=== PATIENT | female | born 1995 | race Caucasian/White ===

== ENCOUNTER 2023-10-28 18:44 | Inpatient (IN) | payer OTHER ==
--- NOTE | 2023-10-28 19:46 | ED Physician Documentation ---
History of Present Illness - Stated complaint Stated Complaint: CHEST PX/NO APPETITE - Chief complaint Chief Complaint: Cardiac - History obtained from History obtained from: Patient, Family - Additonal information Additional information: 28-year-old female arrives to the emergency department complaining of epigastric pain and burning that radiates to her chest for the past several weeks. She drinks alcohol daily. 5-6 drinks per night per her significant other. He states she has not had any alcohol today. Has had an alcohol withdrawal seizure in the past. Shortly after arrival in the emergency department she had a seizure in the bed, lasted about 1 to 2 minutes followed by 5 to 10 minutes of a postictal period. Does not have any other seizure history. Does not take any medications at home other than recently prescribed Zofran from a walk-in clinic. Review of Systems Constitutional: denies: Fever, Chills Respiratory: denies: Cough GI: denies: Nausea, Vomiting, Diarrhea Skin: denies: Rash Musculoskeletal: denies: Neck pain, Back pain Neurologic: denies: Headache PD PAST MEDICAL HISTORY - Past Medical History Cardiovascular: Hypertension - Past Surgical History Past Surgical History: No - Allergies Allergies/Adverse Reactions: Allergies Allergy/AdvReac Type Severity Reaction Status Date / Time No Known Drug Allergies Allergy Verified 10/28/23 18:53 - Social History Does the pt smoke?: Yes Smoking Status: Current every day smoker PD ED PE NORMAL - Vitals Vital signs reviewed: Yes - General General: Alert and oriented X 3, No acute distress - HEENT HEENT: Atraumatic, PERRL, EOMI, Moist mucous membranes - Neck Neck: Supple, no meningeal sign - Cardiac Cardiac: Other (tachycardia) - Respiratory Respiratory: No respiratory distress, Clear bilaterally - Abdomen Abdomen: Soft, Non tender, Non distended - Back Back: No spinal TTP - Derm Derm: Warm and dry - Neuro Neuro: Alert and oriented X 3, lockstitch topstitcher 2-12 intact, No motor deficit, No sensory deficit, Normal speech Eye Opening: Spontaneous Motor: Obeys Commands Verbal: Oriented GCS Score: 15 - Psych Psych: Normal mood, Normal affect Results - Vitals Vitals: Vital Signs - 24 hr 10/28/23 18:47 Temperature 36.9 C Heart Rate 134 H Respiratory 22 Rate Blood Pressure 156/131 H O2 Saturation 100 Oxygen O2 Source Room air - EKG (time done) 1855 EKG releavant findings:: EKG personally interpreted by author of this note. Relevant findings are: Rate: Rate (enter#) (117) Rhythm: Sinus tachycardia [place]: Normal Intervals: Normal HI QRS: Normal Ischemia: Non specific changes - Labs Labs: Laboratory Tests 10/28/23 10/28/23 10/28/23 19:55 19:55 19:55 WBC 8.3 RBC 3.80 L Hgb 14.7 Hct 41.8 MCV 110.0 H MCH 38.7 H MCHC 35.2 RDW 13.9 Plt Count 211 MPV 9.8 Neut # (Auto) 5.8 Lymph # (Auto) 1.5 [place] # (Auto) 0.9 Eos # (Auto) 0.0 Baso # (Auto) 0.1 Absolute Nucleated RBC 0.00 Nucleated RBC % 0.0 PT INR APTT Sodium 136 Potassium 3.0 L Chloride 94 L Carbon Dioxide 13 L Anion Gap 29.0 H BUN 6 Creatinine 0.9 Estimated GFR (MDRD) 76 L Glucose 156 H Calcium 10.2 Phosphorus 3.6 Magnesium 1.4 L Total Bilirubin 2.4 H AST 61 H ALT 42 Alkaline Phosphatase 84 Troponin I High Sens 22.1 H* Total Protein 6.9 Albumin 4.7 Globulin 2.2 Albumin/Globulin Ratio 2.1 Lipase 47 TSH 5.79 H Free T4 Direct 1.08 Urine Color YELLOW Urine Clarity CLEAR Urine pH 6.5 Ur Specific [place] <=1.005 Urine Protein NEGATIVE Urine Glucose (UA) NEGATIVE Urine Ketones NEGATIVE Urine Occult Blood TRACE-LYSE Urine Nitrite NEGATIVE Urine Bilirubin NEGATIVE Urine Urobilinogen 0.2 (NORMAL) Ur Leukocyte Esterase NEGATIVE Ur Microscopic Review NOT INDICATED Urine Culture Comments NOT INDICATED Urine HCG, Qual NEGATIVE Urine Opiates Screen NEGATIVE Ur Buprenorphine Scrn NEGATIVE Ur Oxycodone Screen NEGATIVE Urine Methadone Screen NEGATIVE Ur Barbiturates Screen NEGATIVE Ur Tricyclics Screen NEGATIVE Ur Phencyclidine Scrn NEGATIVE Ur Amphetamine Screen NEGATIVE U Methamphetamines Scrn NEGATIVE U Benzodiazepines Scrn NEGATIVE Urine Cocaine Screen NEGATIVE U Cannabinoids Screen NEGATIVE Ur Drug Screen Comment CUTOFF CONC BELOW: Ethyl Alcohol < 10.0 10/28/23 21:10 WBC RBC Hgb Hct MCV MCH MCHC RDW Plt Count MPV Neut # (Auto) Lymph # (Auto) [place] # (Auto) Eos # (Auto) Baso # (Auto) Absolute Nucleated RBC Nucleated RBC % PT 13.0 H INR 1.2 APTT 25.1 Sodium Potassium Chloride Carbon Dioxide Anion Gap BUN Creatinine Estimated GFR (MDRD) Glucose Calcium Phosphorus Magnesium Total Bilirubin AST ALT Alkaline Phosphatase Troponin I High Sens Total Protein Albumin Globulin Albumin/Globulin Ratio Lipase TSH Free T4 Direct Urine Color Urine Clarity Urine pH Ur Specific [place] Urine Protein Urine Glucose (UA) Urine Ketones Urine Occult Blood Urine Nitrite Urine Bilirubin Urine Urobilinogen Ur Leukocyte Esterase Ur Microscopic Review Urine Culture Comments Urine HCG, Qual Urine Opiates Screen Ur Buprenorphine Scrn Ur Oxycodone Screen Urine Methadone Screen Ur Barbiturates Screen Ur Tricyclics Screen Ur Phencyclidine Scrn Ur Amphetamine Screen U Methamphetamines Scrn U Benzodiazepines Scrn Urine Cocaine Screen U Cannabinoids Screen Ur Drug Screen Comment Ethyl Alcohol - Rads (name of study) cxr Relevant Findings:: Final report received, See rad report PD Medical Decision Making - ED course Complexity details: reviewed results, re-evaluated patient, considered differential, d/w patient, d/w family, d/w category consultant ED course: 28-year-old female presents to the emergency department with epigastric and chest pain for the past 3 weeks. She drinks alcohol daily, she states 2-3 drinks per day, significant other states at least 6. She has had alcohol withdrawal seizures before and has been admitted for alcohol withdrawal in the past. Patient was given IV Ativan, phenobarbital, thiamine, folate, IV fluids. Magnesium was also replaced. Discussed the case with the nighttime hospitalist for admission to the ICU for alcohol withdrawal seizures and alcohol withdrawal. The nighttime hospitalist requests a head CT prior to admission. Head CT was ordered. Patient is signed out to Dr. Malloy awaiting final disposition. This document was made in part using voice recognition software. While efforts are made to proofread this document, sound alike and grammatical errors may occur. Departure - Departure Disposition: 66 [facility] DC/Xfer Clinical Impression: Hypomagnesemia Alcohol withdrawal Qualifiers: Complication of substance-induced condition: uncomplicated Qualified Code(s): F10.930 - Alcohol use, unspecified with withdrawal, uncomplicated Alcohol withdrawal seizure Qualifiers: Complication of substance-induced condition: uncomplicated Qualified Code(s): F10.930 - Alcohol use, unspecified with withdrawal, uncomplicated Condition: Stable Forms: PCP List
[2023-10-28] MEDS ORDERED: LORazepam 2 MG/ML VIAL IVP STA ×2 (19:53→20:42)
[2023-10-28 20:10] LABS: BASOPHILS # (AUTO) 0.1 10^3/uL (0.0-0.1); BASOPHILS % (AUTO) 0.6 %; EOSINOPHILS % (AUTO) 0.1 %; HCT - HEMATOCRIT 41.8 % (37.0-47.0); HGB - HEMOGLOBIN 14.7 g/dL (12.0-16.0); LYMPHOCYTES # (AUTO) 1.5 10^3/uL (1.5-3.5); LYMPHOCYTES % (AUTO) 18.6 %; MEAN CORPUSCULAR HEMOGLOBIN 38.7 pg (27.0-31.0); MEAN CORPUSCULAR HGB CONC 35.2 g/dL (32.0-36.0); MEAN PLATELET VOLUME 9.8 fL (7.9-10.8); MONOCYTES # (AUTO) 0.9 10^3/uL (0.0-1.0); MONOCYTES % (AUTO) 10.8 %; NEUTROPHILS # (AUTO) 5.8 10^3/uL (1.5-6.6); NEUTROPHILS % (AUTO) 69.4 %; PLT - PLATELET COUNT 211 10^3/uL (130-450); RED CELL DISTRIBUTION WIDTH 13.9 % (12.0-15.0); WHITE BLOOD COUNT 8.3 x10^3/uL (4.8-10.8)
[2023-10-28] MEDS ORDERED: PHENobarbital 65 MG/ML VIAL IM STA (20:12)
[2023-10-28 20:14] LABS: BILIRUBIN,URINE NEGATIVE (NEGATIVE); GLUCOSE, URINE (UA) NEGATIVE (NEGATIVE); KETONES,URINE (UA) NEGATIVE (NEGATIVE); LEUKOCYTE ESTERASE, URINE NEGATIVE (NEGATIVE); NITRITE,URINE NEGATIVE (NEGATIVE); OCCULT BLOOD,URINE TRACE-LYSE (NEGATIVE); PH,URINE 6.5 PH (5.0-7.5); PROTEIN,URINE NEGATIVE (NEGATIVE); UROBILINOGEN,URINE 0.2 (NORMAL) E.U./dL (NORMAL)
[2023-10-28 20:18] LABS: CLARITY,URINE CLEAR (CLEAR)
[2023-10-28 20:19] LABS: HCG UR QUAL NEGATIVE
[2023-10-28 20:29] LABS: ALBUMIN 4.7 g/dL (3.2-5.5); ETOH - ETHANOL < 10.0 mg/dL; LIPASE 47 U/L (11-82); MAGNESIUM 1.4 mg/dL (1.7-2.3); PHOSPHORUS 3.6 mg/dL (2.5-5.0)
[2023-10-28 20:35] LABS: ALBUMIN/GLOBULIN RATIO 2.1 (1.0-2.2); ALKALINE PHOSPHATASE 84 IU/L (42-121); ALT ALANINE AMINOTRANSFERASE 42 IU/L (10-60); AST ASPARTATE AMINOTRANSFERASE 61 IU/L (10-42); BILIRUBIN,TOTAL 2.4 mg/dL (0.2-1.0); BUN - BLOOD UREA NITROGEN 6 mg/dL (6-20); CALCIUM 10.2 mg/dL (8.5-10.3); CARBON DIOXIDE - CO2 13 mmol/L (21-32); CHLORIDE 94 mmol/L (101-111); CREATININE 0.9 mg/dL (0.6-1.3); GFR - MDRD 76 (>89); GLUCOSE 156 mg/dL (74-104); SODIUM 136 mmol/L (135-145); TOTAL PROTEIN 6.9 g/dL (6.4-8.9); TROPONIN I HIGH SENSITIVITY 22.1 ng/L (2.3-14.8)
[2023-10-28] MEDS ORDERED: THIAMINE INJ 100 MG, FOLIC ACID INJ 1 MG in SODIUM CHLORIDE 0.9% 1,000 ML IV STA (20:41)
[2023-10-28] MEDS ORDERED: MAGNESIUM SULFATE 2 GRAM 2 GM/50 ML BAG IV ONE (20:42)
[2023-10-28 20:43] LABS: THYROID STIMULATING HORMONE 5.79 uIU/mL (0.34-5.60)
[2023-10-28 20:44] LABS: AMPHETAMINE SCREEN,URINE NEGATIVE (NEGATIVE); BARBITURATE SCREEN,UR NEGATIVE (NEGATIVE); BENZODIAZEPINES SCREEN, URINE NEGATIVE (NEGATIVE); BUPRENORPHINE SCREEN, URINE NEGATIVE (NEGATIVE); COCAINE SCREEN URINE NEGATIVE (NEGATIVE); METHADONE SCREEN, URINE NEGATIVE (NEGATIVE); METHAMPHETAMINES SCREEN, URINE NEGATIVE (NEGATIVE); OPIATE SCREEN, URINE NEGATIVE (NEGATIVE); OXYCODONE SCREEN, URINE NEGATIVE (NEGATIVE); THC CANNABINOID SCREEN, URINE NEGATIVE (NEGATIVE); TRICYCLIC ANTIDEPRESSANT,URINE NEGATIVE (NEGATIVE)
[2023-10-28] MEDS ORDERED: SODIUM CHLORIDE 0.9% 1,000 ML IV STA (20:44)
[2023-10-28] MEDS ORDERED: FOLIC ACID 5 MG/1 ML 10ML MDV ONE (20:55)
[2023-10-28] MEDS ORDERED: THIAMINE 100 MG/1 ML 2 ML MDV ONE (20:55)
--- NOTE | 2023-10-28 20:55 | XRAY Report ---
PROCEDURE: Chest 1 View X-Ray INDICATIONS: Chest Pain TECHNIQUE: One view of the chest was acquired. COMPARISON: None. FINDINGS: Surgical changes and devices: None. Lungs and pleura: No pleural effusions or pneumothorax. Lungs are clear. Mediastinum: Mediastinal contours appear normal. Heart size is normal. Bones and chest wall: No suspicious bony lesions. Overlying soft tissues appear unremarkable. IMPRESSION: No acute cardiopulmonary process. Reviewed by: Hollie Bullock MD on 10/28/2023 8:54 PM [facility] Approved by: Hollie Bullock MD on 10/28/2023 8:54 PM [facility] Station ID: [id number]
[2023-10-28] MEDS ORDERED: PANTOPRAZOLE 40 MG VIAL IVP STA ×2 (21:12→23:00)
[2023-10-28 21:34] LABS: PARTIAL THROMBOPLASTIN TIME 25.1 secs (24.9-33.3)
[2023-10-28 21:38] LABS: INR 1.2 (0.8-1.2)
--- NOTE | 2023-10-28 23:06 | CT Report ---
PROCEDURE: HEAD WO INDICATIONS: seizure, etoh withdrawal TECHNIQUE: Noncontrast 4.5 mm thick angled axial sections acquired from the foramen magnum to the vertex. For r adiation dose reduction, the following was used: automated exposure control, adjustment of mA and/or kV according to patient size. COMPARISON: None. FINDINGS: Image quality: Excellent. CSF spaces: Basal cisterns are patent. No extra-axial fluid collections. Ventricles are normal in size and shape. Brain: No midline shift. No intracranial masses or hemorrhage. Wei-white matter interface is norm al. Skull and face: Calvarium and visualized facial bones are intact, without suspicious lesions. Sinuses: Visualized sinuses and mastoids are clear. IMPRESSION: No acute intracranial pathology. Reviewed by: Hollie Bullock MD on 10/28/2023 11:04 PM [facility] Approved by: Hollie Bullock MD on 10/28/2023 11:04 PM [facility] Station ID: [id number]
--- NOTE | 2023-10-28 23:25 | HISTORY & PHYSICAL EXAMINATION ---
Chief Complaint - Chief Complaint Chief Complaint: seizure History of Present Illness - Admitted From Admitted From:: home - History of Present Illness HPI Comment/Other: 28 y/o F presented to the ED with abd. Mosty epigastric for few weeks. No radiation or sob but occasional nausea. She received some Zofran in a clinic few days ago. She drinks daily and has had alcohol withdrawal seizure in the past. Shortly after arrival she had a seizure for 1-2 min followed by 5-10 min post- ictal and since then back to baseline. She denies head trauma or fever/chills. Pt says she is feeling much better with decreased abdominal pain now. She denies any cp. she says this is similar to the seizure episode she had years ago. she says she drinks 2-3 drinks a day from a kurtis can. Her significant other earlier said it's more than that. History - Past Medical History Cardiovascular: reports: Hypertension Meds/Allgy - Allergies Allergies/Adverse Reactions: Allergies Allergy/AdvReac Type Severity Reaction Status Date / Time No Known Drug Allergies Allergy Verified 10/28/23 18:53 Review of Systems - Gastrointestinal Gastrointestinal: reports: Abdominal pain - Other Findings Other Findings: otherwise all systems negative except what was mentioned in the HPI Exam - Vital Signs Vital Signs: Vital Signs x48h Temp Pulse Resp BP Pulse Ox 10/28/23 22:00 125 H 24 137/90 H 100 10/28/23 20:53 133 H 24 138/94 H 98 10/28/23 18:47 36.9 C 134 H 22 156/131 H 100 - Physical Exam General Appearance: positive: No acute distress Neck: positive: Nml inspection Respiratory: positive: No respiratory distress Cardiovascular: positive: Tachycardia Abdomen: positive: Non-tender Conclusion/Plan - Lab Results Fish Bones: 10/28/23 19:55 10/28/23 19:55 - Other Other Results/Comments: 28 y/o F # seizure, probably alcohol withdrawal: ICU monitoring, precautions, diazepam PO, Ativan IV PRN, FA, thiamine and MVI. Check lytes. # Possible PUD related to alcohol: PPI # full code discussed with pt # adriana nunn I performed this consultation using real-wanda telehealth tools including a live video connection between my location and the patient's location. As the provider for this telehealth service, I attest that I introduced myself to the patient and/or the family, provided my credentials, disclosed my location and determined that based on my review of patient's chart and/or discussion with members of the patient's treatment team, telemedicine via real time, 2 way, interactive audio and video platform is an appropriate and effective means of providing service. The patient/family and I mutually agree that this visit is appropriate for telemedicine as well. Patients have been informed of and agreed to telemedicine management by partnership of [employer] and hospital administration, knowing the limitations of telemedicine. Some elements of this visit were assisted with the audiovisual technology and the bedside nurse. Total time is 45 minutes of which greater than 50% was spent in direct patient care. I answered all medical questions to the best of my ability.
[2023-10-28] MEDS ORDERED: SODIUM CHLORIDE FLUSH 0.9% 10 ML SYRINGE IVP PRN (23:36)
[2023-10-28] MEDS ORDERED: diazePAM 5 MG TABLET PO STA (23:41)
[2023-10-28] MEDS ORDERED: ONDANSETRON 4 MG/2 ML VIAL IVP PRN (23:48)
[2023-10-29] MEDS ORDERED: LORazepam 2 MG/ML VIAL IVP PRN (00:35)
[2023-10-29] MEDS: chlordiazePOXIDE 25 MG CAPSULE PO SCH ×5 (00:46→23:48)
[2023-10-29] MEDS ORDERED: LORazepam 100MG/100ML D5W 100 ML IV SCH (01:00)
[2023-10-29] MEDS: SODIUM CHLORIDE FLUSH 0.9% 10 ML SYRINGE IVP SCH ×3 (01:19→18:03)
[2023-10-29 02:03] LABS: BASOPHILS % (AUTO) 0.5 %; EOSINOPHILS % (AUTO) 0.4 %; HCT - HEMATOCRIT 33.1 % (37.0-47.0); HGB - HEMOGLOBIN 11.8 g/dL (12.0-16.0); LYMPHOCYTES # (AUTO) 1.1 10^3/uL (1.5-3.5); LYMPHOCYTES % (AUTO) 20.4 %; MEAN CORPUSCULAR HEMOGLOBIN 38.3 pg (27.0-31.0); MEAN CORPUSCULAR HGB CONC 35.6 g/dL (32.0-36.0); MEAN CORPUSCULAR VOLUME 107.5 fL (81.0-99.0); MEAN PLATELET VOLUME 9.7 fL (7.9-10.8); MONOCYTES # (AUTO) 0.5 10^3/uL (0.0-1.0); MONOCYTES % (AUTO) 8.9 %; NEUTROPHILS # (AUTO) 3.9 10^3/uL (1.5-6.6); NEUTROPHILS % (AUTO) 69.6 %; PLT - PLATELET COUNT 157 10^3/uL (130-450); RED BLOOD COUNT 3.08 10^6/uL (4.20-5.40); RED CELL DISTRIBUTION WIDTH 13.7 % (12.0-15.0); WHITE BLOOD COUNT 5.6 x10^3/uL (4.8-10.8)
[2023-10-29 02:15] LABS: INR 1.2 (0.8-1.2); PT - PROTHROMBIN TIME 12.7 secs (9.9-12.6)
[2023-10-29 03:28] LABS: CALCIUM, IONIZED 1.06 mmol/L (1.15-1.33); VBG PH 7.439 (7.31-7.41)
[2023-10-29 03:33] LABS: ALBUMIN 3.7 g/dL (3.2-5.5); ALBUMIN/GLOBULIN RATIO 2.3 (1.0-2.2); BILIRUBIN,DIRECT 0.81 mg/dL (0.03-0.18); BILIRUBIN,TOTAL 2.1 mg/dL (0.2-1.0); CALCIUM 8.7 mg/dL (8.5-10.3); CREATININE 0.7 mg/dL (0.6-1.3); TOTAL PROTEIN 5.3 g/dL (6.4-8.9)
[2023-10-29] MEDS: CALCIUM CARBONATE CHEW 500 MG TABLET PO SCH ×2 (05:22→09:01)
[2023-10-29] MEDS: POTASSIUM CHLOR 10 MEQ/100 ML 10 MEQ/100 ML BAG IV SCH ×4 (05:43→10:31)
[2023-10-29] MEDS: THIAMINE 100 MG TABLET PO SCH (08:51)
[2023-10-29] MEDS: FOLIC ACID 1 MG TABLET PO SCH (08:51)
[2023-10-29] MEDS: PRENATAL VITAMIN TABLET PO SCH (08:52)
[2023-10-29] MEDS ORDERED: PANTOPRAZOLE 40 MG VIAL IVP SCH (09:00)
--- NOTE | 2023-10-29 11:01 | PHARMACY PROGRESS NOTE ---
- Best Possible Medication History Admit Date and Time: 10/28/23 2670 Processed by: Pharmacy Medication History completed: Yes Patient Interview: Completed As the person ultimately responsible for medication therapy, providers are able to order a medication from an existing home medication list in [facility] via the "Reconcile Routine" prior to Confirmation of that medication by supportive employment case manager. Such practice is discouraged except when the physician, in their clinical harry gment, deems that a medical need exists for a medication without regard to previous use.
[2023-10-29 13:52] LABS: VBG PH 7.427 (7.31-7.41)
[2023-10-29 13:53] LABS: CALCIUM, IONIZED 1.13 mmol/L (1.15-1.33)
[2023-10-29] MEDS: POTASSIUM CHLORIDE 20 MEQ TABLET PO SCH ×2 (15:08→18:03)
--- NOTE | 2023-10-29 15:09 | PROVIDER PROGRESS NOTE ---
Assessment/Plan - Problem List (1) Alcohol withdrawal seizure Qualifiers: Complication of substance-induced condition: uncomplicated Qualified Code(s): F10.930 - Alcohol use, unspecified with withdrawal, uncomplicated; R56.9 - Unspecified convulsions Assessment/Plan: -- Etiology of seizure believed to be alcohol withdrawal. She did have a previo us seizure in 2019. I recommended she follow-up with a neurologist as an outpatient. --Continue CIWA protocol with Ativan. She is scoring quite low this morning. --Continue vitamin supplementation. - Current Meds Current Meds: Current Medications Generic Name Dose Route Start Last Admin Trade Name Freq PRN Reason Stop Dose Admin Chlordiazepoxide HCl 25 mg 10/29/23 00:00 10/29/23 12:36 Chlordiazepoxide 25 Mg Capsule PO 25 mg Q6HR PERRY Administration Folic Acid 1 mg 10/29/23 09:00 10/29/23 08:51 Folic Acid 1 Mg Tablet PO 1 mg DAILY PERRY Administration Lorazepam 1 mg 10/29/23 00:35 10/29/23 05:46 Lorazepam 2 Mg/Ml Vial IVP 1 mg Q2H PRN Administration Anxiety Multivit/Folic Acid/Iron 1 tab 10/29/23 09:00 10/29/23 08:52 Vitamin Tablet PO 1 tab DAILY PERRY Administration Sodium Chloride 10 ml 10/29/23 01:00 10/29/23 10:32 Sodium Chloride Flush 0.9% 10 Ml Syringe IVP 10 ml 0100,0900,1700 PERRY Administration Sodium Chloride 10 ml 10/28/23 23:36 10/29/23 10:17 Sodium Chloride Flush 0.9% 10 Ml Syringe IVP 10 ml PRN PRN Administration NEEDED PER PROVIDER ORDERS Thiamine HCl 100 mg 10/29/23 09:00 10/29/23 08:51 Thiamine 100 Mg Tablet PO 100 mg DAILY PERRY Administration - Lab Result Fish Bone Diagrams: 10/29/23 01:49 10/29/23 13:41 - Additional Planning My Orders: My Active Orders 10/29/23 Dinner Regular Diet [DIET] 10/29/23 21:00 Famotidine [Pepcid] 20 mg PO BID 10/30/23 05:00 BMP - BASIC METABOLIC PANEL [CHEM] DAILYLAB CBC [CBC - COMP BLD CT W/AUTO DIFF] [HEME] DAILYLAB 10/31/23 05:00 BMP - BASIC METABOLIC PANEL [CHEM] DAILYLAB CBC [CBC - COMP BLD CT W/AUTO DIFF] [HEME] DAILYLAB 11/01/23 05:00 BMP - BASIC METABOLIC PANEL [CHEM] DAILYLAB CBC [CBC - COMP BLD CT W/AUTO DIFF] [HEME] DAILYLAB 11/02/23 05:00 BMP - BASIC METABOLIC PANEL [CHEM] DAILYLAB CBC [CBC - COMP BLD CT W/AUTO DIFF] [HEME] DAILYLAB 11/03/23 05:00 BMP - BASIC METABOLIC PANEL [CHEM] DAILYLAB CBC [CBC - COMP BLD CT W/AUTO DIFF] [HEME] DAILYLAB Subjective - Subjective Patient Reports: Feeling Better, Resting Comfortably, No Complaints Objective Vital Signs: Vital Signs - 24 hr 10/28/23 10/28/23 10/28/23 18:47 20:53 22:00 Temperature 36.9 C Heart Rate 134 H 133 H 125 H Heart Rate [ Monitoring electrodes] Respiratory 22 24 24 Rate Blood Pressure 156/131 H 138/94 H 137/90 H Blood Pressure [Left Radial artery] Blood Pressure [Right Brachial artery] Blood Pressure [Right Radial artery] O2 Saturation 100 98 100 10/29/23 10/29/23 10/29/23 00:00 00:39 01:00 Temperature 36.7 C Heart Rate 85 Heart Rate [ 127 H 123 H Monitoring electrodes] Respiratory 20 23 25 H Rate Blood Pressure 156/95 H Blood Pressure [Left Radial artery] Blood Pressure 126/89 H 150/104 H [Right Brachial artery] Blood Pressure [Right Radial artery] O2 Saturation 97 98 96 10/29/23 10/29/23 10/29/23 02:00 03:00 04:00 Temperature Heart Rate Heart Rate [ 112 H 109 H 108 H Monitoring electrodes] Respiratory 19 20 21 Rate Blood Pressure Blood Pressure [Left Radial artery] Blood Pressure 122/71 129/76 124/75 [Right Brachial artery] Blood Pressure [Right Radial artery] O2 Saturation 96 97 97 10/29/23 10/29/23 10/29/23 05:00 06:00 07:00 Temperature 36.7 C Heart Rate Heart Rate [ 105 H 112 H 116 H Monitoring electrodes] Respiratory 19 23 25 H Rate Blood Pressure Blood Pressure [Left Radial artery] Blood Pressure 112/73 107/69 [Right Brachial artery] Blood Pressure [Right Radial artery] O2 Saturation 98 99 98 10/29/23 10/29/23 10/29/23 08:00 09:00 10:00 Temperature 36.7 C Heart Rate Heart Rate [ 117 H 105 H 113 H Monitoring electrodes] Respiratory 21 17 20 Rate Blood Pressure Blood Pressure 125/83 H 113/69 [Left Radial artery] Blood Pressure 150/91 H [Right Brachial artery] Blood Pressure [Right Radial artery] O2 Saturation 98 97 100 10/29/23 10/29/23 10/29/23 11:00 12:00 13:00 Temperature 37.1 C Heart Rate Heart Rate [ 101 H 107 H 109 H Monitoring electrodes] Respiratory 16 23 18 Rate Blood Pressure Blood Pressure 131/87 H [Left Radial artery] Blood Pressure [Right Brachial artery] Blood Pressure 132/90 H 131/82 H [Right Radial artery] O2 Saturation 97 97 96 10/29/23 14:00 Temperature Heart Rate Heart Rate [ 108 H Monitoring electrodes] Respiratory 20 Rate Blood Pressure Blood Pressure [Left Radial artery] Blood Pressure [Right Brachial artery] Blood Pressure 127/77 [Right Radial artery] O2 Saturation 98 Oxygen O2 Source Room air I&O (Last 24 Hrs): Intake and Output Totals x24h 10/27/23 10/28/23 10/29/23 23:59 23:59 23:59 Intake Total 2051.2 449.167 Output Total 200 Balance 2051.2 249.167 General: Alert, Oriented x3, Cooperative, No acute distress Neuro: Alert, CN 2-12 Grossly Intact, Oriented Times 3 Cardiovascular: Regular rate Respiratory: Chest non-tender, No respiratory distress, Breath sounds nml Abdomen: Normal bowel sounds, Soft, No tenderness, No hepatospenomegaly, No masses - Results Results: Laboratory Results WBC 5.6 x10^3/uL (4.8-10.8) 10/29/23 01:49 RBC 3.08 10^6/uL (4.20-5.40) L 10/29/23 01:49 Hgb 11.8 g/dL (12.0-16.0) L 10/29/23 01:49 Hct 33.1 % (37.0-47.0) L 10/29/23 01:49 MCV 107.5 fL (81.0-99.0) H 10/29/23 01:49 MCH 38.3 pg (27.0-31.0) H 10/29/23 01:49 MCHC 35.6 g/dL (32.0-36.0) 10/29/23 01:49 RDW 13.7 % (12.0-15.0) 10/29/23 01:49 Plt Count 157 10^3/uL (130-450) 10/29/23 01:49 MPV 9.7 fL (7.9-10.8) 10/29/23 01:49 Neut # (Auto) 3.9 10^3/uL (1.5-6.6) 10/29/23 01:49 Lymph # (Auto) 1.1 10^3/uL (1.5-3.5) L 10/29/23 01:49 [place] # (Auto) 0.5 10^3/uL (0.0-1.0) 10/29/23 01:49 Eos # (Auto) 0.0 10^3/uL (0.0-0.7) 10/29/23 01:49 Baso # (Auto) 0.0 10^3/uL (0.0-0.1) 10/29/23 01:49 Absolute Nucleated RBC 0.00 x10^3/uL 10/29/23 01:49 Nucleated RBC % 0.0 /100WBC 10/29/23 01:49 PT 12.7 secs (9.9-12.6) H 10/29/23 01:49 INR 1.2 (0.8-1.2) 10/29/23 01:49 APTT 25.1 secs (24.9-33.3) 10/28/23 21:10 VBG pH 7.427 (7.31-7.41) H 10/29/23 13:41 Ionized Calcium 1.13 mmol/L (1.15-1.33) L 10/29/23 13:41 Sodium 136 mmol/L (135-145) 10/29/23 01:49 Potassium 3.4 mmol/L (3.5-4.5) L 10/29/23 13:41 Chloride 101 mmol/L (101-111) 10/29/23 01:49 Carbon Dioxide 25 mmol/L (21-32) 10/29/23 01:49 Anion Gap 10.0 (6-13) 10/29/23 01:49 BUN 5 mg/dL (6-20) L 10/29/23 01:49 Creatinine 0.7 mg/dL (0.6-1.3) 10/29/23 01:49 Estimated GFR (MDRD) 101 (>89) 10/29/23 01:49 Glucose 112 mg/dL (74-104) H 10/29/23 01:49 Calcium 8.7 mg/dL (8.5-10.3) 10/29/23 01:49 Phosphorus 3.0 mg/dL (2.5-5.0) 10/29/23 01:49 Magnesium 2.0 mg/dL (1.7-2.3) 10/29/23 01:49 Total Bilirubin 2.1 mg/dL (0.2-1.0) H 10/29/23 01:49 Direct Bilirubin 0.81 mg/dL (0.03-0.18) H 10/29/23 01:49 AST 46 IU/L (10-42) H 10/29/23 01:49 ALT 30 IU/L (10-60) 10/29/23 01:49 Alkaline Phosphatase 62 IU/L (42-121) 10/29/23 01:49 Troponin I High Sens 15.6 ng/L (2.3-14.8) H* 10/29/23 01:49 Total Protein 5.3 g/dL (6.4-8.9) L 10/29/23 01:49 Albumin 3.7 g/dL (3.2-5.5) 10/29/23 01:49 Globulin 1.6 g/dL (2.1-4.2) L 10/29/23 01:49 Albumin/Globulin Ratio 2.3 (1.0-2.2) H 10/29/23 01:49 Lipase 47 U/L (11-82) 10/28/23 19:55 TSH 5.79 uIU/mL (0.34-5.60) H 10/28/23 19:55 Free T4 Direct 1.08 ng/dL (0.58-1.64) 10/28/23 19:55 Urine Color YELLOW 10/28/23 19:55 Urine Clarity CLEAR (CLEAR) 10/28/23 19:55 Urine pH 6.5 PH (5.0-7.5) 10/28/23 19:55 Ur Specific [place] <=1.005 (1.002-1.030) 10/28/23 19:55 Urine Protein NEGATIVE mg/dL (NEGATIVE) 10/28/23 19:55 Urine Glucose (UA) NEGATIVE mg/dL (NEGATIVE) 10/28/23 19:55 Urine Ketones NEGATIVE mg/dL (NEGATIVE) 10/28/23 19:55 Urine Occult Blood TRACE-LYSE (NEGATIVE) 10/28/23 19:55 Urine Nitrite NEGATIVE (NEGATIVE) 10/28/23 19:55 Urine Bilirubin NEGATIVE (NEGATIVE) 10/28/23 19:55 Urine Urobilinogen 0.2 (NORMAL) E.U./dL (NORMAL) 10/28/23 19:55 Ur Leukocyte Esterase NEGATIVE (NEGATIVE) 10/28/23 19:55 Ur Microscopic Review NOT INDICATED 10/28/23 19:55 Urine Culture Comments NOT INDICATED 10/28/23 19:55 Urine HCG, Qual NEGATIVE 10/28/23 19:55 Nasal Screen MRSA (PCR) NEGATIVE (NEGATIVE) 10/29/23 00:50 Urine Opiates Screen NEGATIVE (NEGATIVE) 10/28/23 19:55 Ur Buprenorphine Scrn NEGATIVE (NEGATIVE) 10/28/23 19:55 Ur Oxycodone Screen NEGATIVE (NEGATIVE) 10/28/23 19:55 Urine Methadone Screen NEGATIVE (NEGATIVE) 10/28/23 19:55 Ur Barbiturates Screen NEGATIVE (NEGATIVE) 10/28/23 19:55 Ur Tricyclics Screen NEGATIVE (NEGATIVE) 10/28/23 19:55 Ur Phencyclidine Scrn NEGATIVE (NEGATIVE) 10/28/23 19:55 Ur Amphetamine Screen NEGATIVE (NEGATIVE) 10/28/23 19:55 U Methamphetamines Scrn NEGATIVE (NEGATIVE) 10/28/23 19:55 U Benzodiazepines Scrn NEGATIVE (NEGATIVE) 10/28/23 19:55 Urine Cocaine Screen NEGATIVE (NEGATIVE) 10/28/23 19:55 U Cannabinoids Screen NEGATIVE (NEGATIVE) 10/28/23 19:55 Ur Drug Screen Comment CUTOFF CONC BELOW: 10/28/23 19:55 Ethyl Alcohol < 10.0 mg/dL 10/28/23 19:55 Current Medications - Current Medications Current Medications: Active Medications Generic Name Dose Route Start Last Admin Trade Name Freq PRN Reason Stop Dose Admin Chlordiazepoxide HCl 25 mg 10/29/23 00:00 10/29/23 12:36 Chlordiazepoxide 25 Mg Capsule PO 25 mg Q6HR PERRY Administration Famotidine 20 mg 10/29/23 21:00 Famotidine 20 Mg Tablet PO BID PERRY Folic Acid 1 mg 10/29/23 09:00 10/29/23 08:51 Folic Acid 1 Mg Tablet PO 1 mg DAILY PERRY Administration Lorazepam 1 mg 10/29/23 00:35 10/29/23 05:46 Lorazepam 2 Mg/Ml Vial IVP 1 mg Q2H PRN Administration Anxiety Ondansetron HCl 4 mg 10/28/23 23:48 Ondansetron 4 Mg/2 Ml Vial IVP 10/30/23 23:47 ONCE PRN Nausea / Vomiting Potassium Chloride 20 meq 10/29/23 15:00 10/29/23 15:08 Potassium Chloride 20 Meq Tablet PO 10/29/23 17:01 20 meq Q2H PERRY Administration Protocol Multivit/Folic Acid/Iron 1 tab 10/29/23 09:00 10/29/23 08:52 Vitamin Tablet PO 1 tab DAILY PERRY Administration Sodium Chloride 10 ml 10/29/23 01:00 10/29/23 10:32 Sodium Chloride Flush 0.9% 10 Ml Syringe IVP 10 ml 0100,0900,1700 PERRY Administration Sodium Chloride 10 ml 10/28/23 23:36 10/29/23 10:17 Sodium Chloride Flush 0.9% 10 Ml Syringe IVP 10 ml PRN PRN Administration NEEDED PER PROVIDER ORDERS Thiamine HCl 100 mg 10/29/23 09:00 10/29/23 08:51 Thiamine 100 Mg Tablet PO 100 mg DAILY PERRY Administration Ibuprofen 600 mg PO Q6H PRN 10/29/23 Oral Contraceptive 1 tab PO DAILY 10/29/23
[2023-10-29] MEDS: FAMOTIDINE 20 MG TABLET PO SCH (21:28)
[2023-10-30] MEDS: SODIUM CHLORIDE FLUSH 0.9% 10 ML SYRINGE IVP SCH ×3 (01:02→18:18)
[2023-10-30 04:37] LABS: BASOPHILS # (AUTO) 0.1 10^3/uL (0.0-0.1); EOSINOPHILS # (AUTO) 0.2 10^3/uL (0.0-0.7); EOSINOPHILS % (AUTO) 4.1 %; HCT - HEMATOCRIT 32.8 % (37.0-47.0); HGB - HEMOGLOBIN 11.2 g/dL (12.0-16.0); LYMPHOCYTES # (AUTO) 1.5 10^3/uL (1.5-3.5); LYMPHOCYTES % (AUTO) 30.2 %; MEAN CORPUSCULAR HEMOGLOBIN 38.6 pg (27.0-31.0); MEAN CORPUSCULAR HGB CONC 34.1 g/dL (32.0-36.0); MEAN CORPUSCULAR VOLUME 113.1 fL (81.0-99.0); MEAN PLATELET VOLUME 9.9 fL (7.9-10.8); MONOCYTES # (AUTO) 0.3 10^3/uL (0.0-1.0); NEUTROPHILS # (AUTO) 2.8 10^3/uL (1.5-6.6); NEUTROPHILS % (AUTO) 57.1 %; PLT - PLATELET COUNT 148 10^3/uL (130-450); RED CELL DISTRIBUTION WIDTH 13.8 % (12.0-15.0); WHITE BLOOD COUNT 4.9 x10^3/uL (4.8-10.8)
[2023-10-30 04:56] LABS: CALCIUM 8.6 mg/dL (8.5-10.3); CREATININE 0.7 mg/dL (0.6-1.3); POTASSIUM 4.1 mmol/L (3.5-4.5); SLIDE REVIEW? Indicated
[2023-10-30 05:01] LABS: CALCIUM, IONIZED 1.14 mmol/L (1.15-1.33); VBG PH 7.395 (7.31-7.41)
[2023-10-30 05:04] LABS: MAGNESIUM 1.8 mg/dL (1.7-2.3); PHOSPHORUS 3.5 mg/dL (2.5-5.0)
[2023-10-30] MEDS ORDERED: MAGNESIUM OXIDE 400 MG TABLET PO ONE ×2 (06:00→11:39)
[2023-10-30] MEDS: chlordiazePOXIDE 25 MG CAPSULE PO SCH (06:14)
[2023-10-30 06:25] LABS: RBC MORPHOLOGY (MULTIPLE) 2+ MACROCYTOSIS (NORMAL)
[2023-10-30 06:26] LABS: PLATELET ESTIMATE, MANUAL NORMAL (130-450,000) (NORMAL)
[2023-10-30] MEDS: FAMOTIDINE 20 MG TABLET PO SCH ×2 (08:37→21:11)
[2023-10-30] MEDS: FOLIC ACID 1 MG TABLET PO SCH (08:37)
[2023-10-30] MEDS: THIAMINE 100 MG TABLET PO SCH (08:37)
[2023-10-30] MEDS: PRENATAL VITAMIN TABLET PO SCH (08:37)
[2023-10-30] MEDS ORDERED: CYANOCOBALAMIN 1,000 MCG/ML VIAL IM ONE (11:28)
[2023-10-30] MEDS: CONTRACEPTIVE PO SCH (11:41)
--- NOTE | 2023-10-30 15:12 | PROVIDER PROGRESS NOTE ---
Assessment/Plan - Problem List (1) Alcohol withdrawal seizure Qualifiers: Complication of substance-induced condition: uncomplicated Qualified Code(s): F10.930 - Alcohol use, unspecified with withdrawal, uncomplicated; R56.9 - Unspecified convulsions Assessment/Plan: (1) Alcohol withdrawal seizure Qualifiers: Complication of substance-induced condition: uncomplicated Qualified Code(s): F10.930 - Alcohol use, unspecified with withdrawal, uncomplicated; R56.9 - Unspecified convulsions Assessment/Plan: -- Etiology of seizure believed to be alcohol withdrawal. She did have a previous seizure in 2019. I recommended she follow-up with a neurologist as an outpatient. --Withdrawal appears to have resolved. --Continue vitamin supplementation. (2) Weakness acquired in ICU Assessment/Plan: --PT/OT assessment. (3) Gastritis due to alcohol without hemorrhage Assessment/Plan: --Started on Protonix and carafate. - Current Meds Current Meds: Current Medications Generic Name Dose Route Start Last Admin Trade Name Freq PRN Reason Stop Dose Admin Famotidine 20 mg 10/29/23 21:00 10/30/23 08:37 Famotidine 20 Mg Tablet PO 20 mg BID PERRY Administration Folic Acid 1 mg 10/29/23 09:00 10/30/23 08:37 Folic Acid 1 Mg Tablet PO 1 mg DAILY PERRY Administration Lorazepam 1 mg 10/29/23 00:35 10/29/23 05:46 Lorazepam 2 Mg/Ml Vial IVP 1 mg Q2H PRN Administration Anxiety Patient Own Med ( 1 each 10/30/23 09:00 10/30/23 11:41 Oral Contraceptive) PO Not Given DAILY PERRY Multivit/Folic Acid/Iron 1 tab 10/29/23 09:00 10/30/23 08:37 Vitamin Tablet PO 1 tab DAILY PERRY Administration Sodium Chloride 10 ml 10/29/23 01:00 10/30/23 08:37 Sodium Chloride Flush 0.9% 10 Ml Syringe IVP 10 ml 0100,0900,1700 PERRY Administration Sodium Chloride 10 ml 10/28/23 23:36 10/29/23 10:17 Sodium Chloride Flush 0.9% 10 Ml Syringe IVP 10 ml PRN PRN Administration NEEDED PER PROVIDER ORDERS Thiamine HCl 100 mg 10/29/23 09:00 10/30/23 08:37 Thiamine 100 Mg Tablet PO 100 mg DAILY PERRY Administration - Lab Result Fish Bone Diagrams: 10/30/23 04:24 10/30/23 04:24 - Additional Planning My Orders: My Active Orders 10/29/23 Dinner Regular Diet [DIET] 10/29/23 21:00 Famotidine [Pepcid] 20 mg PO BID 10/30/23 Evaluate and Treat OT [OT] Routine Evaluate and Treat PT [PT] Routine 10/30/23 09:00 Patient Own Med 1 each PO DAILY 10/30/23 16:00 Pantoprazole [Protonix] 40 mg PO QDAC Sucralfate [Carafate] 1 gm PO 0700,1100,1600,2200 10/31/23 05:00 BMP - BASIC METABOLIC PANEL [CHEM] DAILYLAB CBC [CBC - COMP BLD CT W/AUTO DIFF] [HEME] DAILYLAB 11/01/23 05:00 BMP - BASIC METABOLIC PANEL [CHEM] DAILYLAB CBC [CBC - COMP BLD CT W/AUTO DIFF] [HEME] DAILYLAB 11/02/23 05:00 BMP - BASIC METABOLIC PANEL [CHEM] DAILYLAB CBC [CBC - COMP BLD CT W/AUTO DIFF] [HEME] DAILYLAB 11/03/23 05:00 BMP - BASIC METABOLIC PANEL [CHEM] DAILYLAB CBC [CBC - COMP BLD CT W/AUTO DIFF] [HEME] DAILYLAB Subjective - Subjective Patient Reports: Resting Comfortably, Abdominal Pain Objective Vital Signs: Vital Signs - 24 hr 10/29/23 10/29/23 10/29/23 16:00 17:00 18:00 Temperature Heart Rate [ 103 H 105 H 113 H Monitoring electrodes] Respiratory 18 19 24 Rate Blood Pressure [Right Brachial artery] Blood Pressure 123/81 H 126/81 H 153/113 H [Right Radial artery] O2 Saturation 97 97 98 10/29/23 10/29/23 10/29/23 18:59 20:00 21:00 Temperature 37.0 C Heart Rate [ 114 H 111 H 112 H Monitoring electrodes] Respiratory 20 24 23 Rate Blood Pressure 121/80 121/72 [Right Brachial artery] Blood Pressure 131/93 H [Right Radial artery] O2 Saturation 99 95 99 10/29/23 10/29/23 10/30/23 22:00 23:00 00:00 Temperature 36.9 C Heart Rate [ 106 H 105 H 115 H Monitoring electrodes] Respiratory 21 22 28 H Rate Blood Pressure 133/76 H 125/78 130/86 H [Right Brachial artery] Blood Pressure [Right Radial artery] O2 Saturation 99 98 96 10/30/23 10/30/23 10/30/23 01:00 02:00 03:00 Temperature Heart Rate [ 102 H 100 95 Monitoring electrodes] Respiratory 16 19 19 Rate Blood Pressure 128/79 118/74 119/71 [Right Brachial artery] Blood Pressure [Right Radial artery] O2 Saturation 95 96 96 10/30/23 10/30/23 10/30/23 04:00 05:00 06:00 Temperature Heart Rate [ 97 98 104 H Monitoring electrodes] Respiratory 18 18 18 Rate Blood Pressure 118/76 119/78 129/83 H [Right Brachial artery] Blood Pressure [Right Radial artery] O2 Saturation 95 95 97 10/30/23 10/30/23 10/30/23 07:00 09:00 10:00 Temperature Heart Rate [ 93 114 H 101 H Monitoring electrodes] Respiratory 17 21 18 Rate Blood Pressure 119/77 130/84 H 126/82 H [Right Brachial artery] Blood Pressure [Right Radial artery] O2 Saturation 96 100 96 10/30/23 10/30/23 10/30/23 11:00 12:00 14:00 Temperature Heart Rate [ 102 H 113 H Monitoring electrodes] Respiratory 20 20 21 Rate Blood Pressure 124/78 141/97 H 139/102 H [Right Brachial artery] Blood Pressure [Right Radial artery] O2 Saturation 96 99 99 10/30/23 15:00 Temperature Heart Rate [ 107 H Monitoring electrodes] Respiratory 33 H Rate Blood Pressure 144/96 H [Right Brachial artery] Blood Pressure [Right Radial artery] O2 Saturation 100 Oxygen O2 Source Room air I&O (Last 24 Hrs): Intake and Output Totals x24h 10/28/23 10/29/23 10/30/23 23:59 23:59 23:59 Intake Total 2051.2 749.167 980 Output Total 200 1 Balance 2051.2 549.167 979 General: Alert, Oriented x3, Cooperative, No acute distress Neuro: Alert, CN 2-12 Grossly Intact, Oriented Times 3 Cardiovascular: Regular rate, Normal S1, Normal S2, No murmurs Respiratory: Chest non-tender, No respiratory distress, Breath sounds nml Abdomen: Normal bowel sounds, Soft, No tenderness, No hepatospenomegaly, No masses - Results Results: Laboratory Results WBC 4.9 x10^3/uL (4.8-10.8) 10/30/23 04:24 RBC 2.90 10^6/uL (4.20-5.40) L 10/30/23 04:24 Hgb 11.2 g/dL (12.0-16.0) L 10/30/23 04:24 Hct 32.8 % (37.0-47.0) L 10/30/23 04:24 MCV 113.1 fL (81.0-99.0) H 10/30/23 04:24 MCH 38.6 pg (27.0-31.0) H 10/30/23 04:24 MCHC 34.1 g/dL (32.0-36.0) 10/30/23 04:24 RDW 13.8 % (12.0-15.0) 10/30/23 04:24 Plt Count 148 10^3/uL (130-450) 10/30/23 04:24 MPV 9.9 fL (7.9-10.8) 10/30/23 04:24 Neut # (Auto) 2.8 10^3/uL (1.5-6.6) 10/30/23 04:24 Lymph # (Auto) 1.5 10^3/uL (1.5-3.5) 10/30/23 04:24 [place] # (Auto) 0.3 10^3/uL (0.0-1.0) 10/30/23 04:24 Eos # (Auto) 0.2 10^3/uL (0.0-0.7) 10/30/23 04:24 Baso # (Auto) 0.1 10^3/uL (0.0-0.1) 10/30/23 04:24 Absolute Nucleated RBC 0.00 x10^3/uL 10/30/23 04:24 Nucleated RBC % 0.0 /100WBC 10/30/23 04:24 Manual Slide Review Indicated 10/30/23 04:24 Platelet Estimate NORMAL (130-450,000) (NORMAL) 10/30/23 04:24 RBC Morph Micro Appear 2+ MACROCYTOSIS (NORMAL) 10/30/23 04:24 PT 12.7 secs (9.9-12.6) H 10/29/23 01:49 INR 1.2 (0.8-1.2) 10/29/23 01:49 APTT 25.1 secs (24.9-33.3) 10/28/23 21:10 VBG pH 7.395 (7.31-7.41) 10/30/23 04:24 Ionized Calcium 1.14 mmol/L (1.15-1.33) L 10/30/23 04:24 Sodium 138 mmol/L (135-145) 10/30/23 04:24 Potassium 4.1 mmol/L (3.5-4.5) 10/30/23 04:24 Chloride 104 mmol/L (101-111) 10/30/23 04:24 Carbon Dioxide 29 mmol/L (21-32) 10/30/23 04:24 Anion Gap 5.0 (6-13) L 10/30/23 04:24 BUN 7 mg/dL (6-20) 10/30/23 04:24 Creatinine 0.7 mg/dL (0.6-1.3) 10/30/23 04:24 Estimated GFR (MDRD) 101 (>89) 10/30/23 04:24 Glucose 91 mg/dL (74-104) 10/30/23 04:24 Calcium 8.6 mg/dL (8.5-10.3) 10/30/23 04:24 Phosphorus 3.5 mg/dL (2.5-5.0) 10/30/23 04:24 Magnesium 1.7 mg/dL (1.7-2.3) 10/30/23 10:06 Total Bilirubin 2.1 mg/dL (0.2-1.0) H 10/29/23 01:49 Direct Bilirubin 0.81 mg/dL (0.03-0.18) H 10/29/23 01:49 AST 46 IU/L (10-42) H 10/29/23 01:49 ALT 30 IU/L (10-60) 10/29/23 01:49 Alkaline Phosphatase 62 IU/L (42-121) 10/29/23 01:49 Troponin I High Sens 15.6 ng/L (2.3-14.8) H* 10/29/23 01:49 Total Protein 5.3 g/dL (6.4-8.9) L 10/29/23 01:49 Albumin 3.7 g/dL (3.2-5.5) 10/29/23 01:49 Globulin 1.6 g/dL (2.1-4.2) L 10/29/23 01:49 Albumin/Globulin Ratio 2.3 (1.0-2.2) H 10/29/23 01:49 Lipase 47 U/L (11-82) 10/28/23 19:55 Vitamin B12 141 pg/mL (180-914) L 10/30/23 04:24 Folate 3.4 ng/mL (5.90 - >24.8) L 10/30/23 04:24 TSH 5.79 uIU/mL (0.34-5.60) H 10/28/23 19:55 Free T4 Direct 1.08 ng/dL (0.58-1.64) 10/28/23 19:55 Urine Color YELLOW 10/28/23 19:55 Urine Clarity CLEAR (CLEAR) 10/28/23 19:55 Urine pH 6.5 PH (5.0-7.5) 10/28/23 19:55 Ur Specific [place] <=1.005 (1.002-1.030) 10/28/23 19:55 Urine Protein NEGATIVE mg/dL (NEGATIVE) 10/28/23 19:55 Urine Glucose (UA) NEGATIVE mg/dL (NEGATIVE) 10/28/23 19:55 Urine Ketones NEGATIVE mg/dL (NEGATIVE) 10/28/23 19:55 Urine Occult Blood TRACE-LYSE (NEGATIVE) 10/28/23 19:55 Urine Nitrite NEGATIVE (NEGATIVE) 10/28/23 19:55 Urine Bilirubin NEGATIVE (NEGATIVE) 10/28/23 19:55 Urine Urobilinogen 0.2 (NORMAL) E.U./dL (NORMAL) 10/28/23 19:55 Ur Leukocyte Esterase NEGATIVE (NEGATIVE) 10/28/23 19:55 Ur Microscopic Review NOT INDICATED 10/28/23 19:55 Urine Culture Comments NOT INDICATED 10/28/23 19:55 Urine HCG, Qual NEGATIVE 10/28/23 19:55 Nasal Screen MRSA (PCR) NEGATIVE (NEGATIVE) 10/29/23 00:50 Urine Opiates Screen NEGATIVE (NEGATIVE) 10/28/23 19:55 Ur Buprenorphine Scrn NEGATIVE (NEGATIVE) 10/28/23 19:55 Ur Oxycodone Screen NEGATIVE (NEGATIVE) 10/28/23 19:55 Urine Methadone Screen NEGATIVE (NEGATIVE) 10/28/23 19:55 Ur Barbiturates Screen NEGATIVE (NEGATIVE) 10/28/23 19:55 Ur Tricyclics Screen NEGATIVE (NEGATIVE) 10/28/23 19:55 Ur Phencyclidine Scrn NEGATIVE (NEGATIVE) 10/28/23 19:55 Ur Amphetamine Screen NEGATIVE (NEGATIVE) 10/28/23 19:55 U Methamphetamines Scrn NEGATIVE (NEGATIVE) 10/28/23 19:55 U Benzodiazepines Scrn NEGATIVE (NEGATIVE) 10/28/23 19:55 Urine Cocaine Screen NEGATIVE (NEGATIVE) 10/28/23 19:55 U Cannabinoids Screen NEGATIVE (NEGATIVE) 10/28/23 19:55 Ur Drug Screen Comment CUTOFF CONC BELOW: 10/28/23 19:55 Ethyl Alcohol < 10.0 mg/dL 10/28/23 19:55 Current Medications - Current Medications Current Medications: Active Medications Generic Name Dose Route Start Last Admin Trade Name Freq PRN Reason Stop Dose Admin Famotidine 20 mg 10/29/23 21:00 10/30/23 08:37 Famotidine 20 Mg Tablet PO 20 mg BID PERRY Administration Folic Acid 1 mg 10/29/23 09:00 10/30/23 08:37 Folic Acid 1 Mg Tablet PO 1 mg DAILY PERRY Administration Lorazepam 1 mg 10/29/23 00:35 10/29/23 05:46 Lorazepam 2 Mg/Ml Vial IVP 1 mg Q2H PRN Administration Anxiety Ondansetron HCl 4 mg 10/28/23 23:48 Ondansetron 4 Mg/2 Ml Vial IVP 10/30/23 23:47 ONCE PRN Nausea / Vomiting Pantoprazole Sodium 40 mg 10/30/23 16:00 Pantoprazole 40 Mg Tablet PO QDAC PERRY Patient Own Med ( 1 each 10/30/23 09:00 10/30/23 11:41 Oral Contraceptive) PO Not Given DAILY PERRY Multivit/Folic Acid/Iron 1 tab 10/29/23 09:00 10/30/23 08:37 Vitamin Tablet PO 1 tab DAILY PERRY Administration Sodium Chloride 10 ml 10/29/23 01:00 10/30/23 08:37 Sodium Chloride Flush 0.9% 10 Ml Syringe IVP 10 ml 0100,0900,1700 PERRY Administration Sodium Chloride 10 ml 10/28/23 23:36 10/29/23 10:17 Sodium Chloride Flush 0.9% 10 Ml Syringe IVP 10 ml PRN PRN Administration NEEDED PER PROVIDER ORDERS Sucralfate 1 gm 10/30/23 16:00 Sucralfate 1 Gm/10 Ml Udc PO 0700,1100,1600,2200 [facility] Thiamine HCl 100 mg 10/29/23 09:00 10/30/23 08:37 Thiamine 100 Mg Tablet PO 100 mg DAILY PERRY Administration Ibuprofen 600 mg PO Q6H PRN 10/29/23 Oral Contraceptive 1 tab PO DAILY 10/29/23
[2023-10-30] MEDS: PANTOPRAZOLE 40 MG TABLET PO SCH (16:13)
[2023-10-30] MEDS: SUCRALFATE 1 GM/10 ML UDC PO SCH ×2 (16:13→21:11)
[2023-10-30] MEDS ORDERED: IBUPROFEN 400 MG TABLET PO PRN (18:30)
[2023-10-30] MEDS ORDERED: amLODIPine 5 MG TABLET PO ONE (18:30)
[2023-10-30] MEDS: ACETAMINOPHEN 325 MG TABLET PO PRN ×2 (19:08→23:49)
--- NOTE | 2023-10-30 20:16 | XRAY Report ---
PROCEDURE: Chest 1 View X-Ray INDICATIONS: Bilateral pleuritic chest pain TECHNIQUE: One view of the chest was acquired. COMPARISON: None. FINDINGS: Surgical changes and devices: None. Lungs and pleura: No pleural effusions or pneumothorax. Lungs are clear. Mediastinum: Mediastinal contours appear normal. Heart size is normal. Bones and chest wall: No suspicious bony lesions. Overlying soft tissues appear unremarkable. IMPRESSION: No acute cardiopulmonary process. Reviewed by: Monica Shetty MD on 10/30/2023 8:15 PM PST Approved by: Monica Shetty MD on 10/30/2023 8:15 PM [facility] Station ID: [id number]
[2023-10-31] MEDS: SODIUM CHLORIDE FLUSH 0.9% 10 ML SYRINGE IVP SCH ×2 (00:01→08:54)
[2023-10-31] MEDS: SUCRALFATE 1 GM/10 ML UDC PO SCH ×2 (05:52→11:24)
[2023-10-31] MEDS: PANTOPRAZOLE 40 MG TABLET PO SCH (05:52)
[2023-10-31 06:24] LABS: BASOPHILS # (AUTO) 0.1 10^3/uL (0.0-0.1); BASOPHILS % (AUTO) 1.5 %; EOSINOPHILS # (AUTO) 0.3 10^3/uL (0.0-0.7); EOSINOPHILS % (AUTO) 5.4 %; HCT - HEMATOCRIT 37.1 % (37.0-47.0); HGB - HEMOGLOBIN 12.5 g/dL (12.0-16.0); LYMPHOCYTES # (AUTO) 1.8 10^3/uL (1.5-3.5); LYMPHOCYTES % (AUTO) 33.4 %; MEAN CORPUSCULAR HGB CONC 33.7 g/dL (32.0-36.0); MEAN CORPUSCULAR VOLUME 112.8 fL (81.0-99.0); MEAN PLATELET VOLUME 9.7 fL (7.9-10.8); MONOCYTES # (AUTO) 0.4 10^3/uL (0.0-1.0); MONOCYTES % (AUTO) 7.1 %; NEUTROPHILS # (AUTO) 2.8 10^3/uL (1.5-6.6); NEUTROPHILS % (AUTO) 51.5 %; PLT - PLATELET COUNT 182 10^3/uL (130-450); RED BLOOD COUNT 3.29 10^6/uL (4.20-5.40); RED CELL DISTRIBUTION WIDTH 13.5 % (12.0-15.0); WHITE BLOOD COUNT 5.4 x10^3/uL (4.8-10.8)
[2023-10-31 06:33] LABS: SLIDE REVIEW? Indicated
[2023-10-31 06:40] LABS: CALCIUM 9.2 mg/dL (8.5-10.3); CREATININE 0.7 mg/dL (0.6-1.3)
[2023-10-31 06:52] LABS: PLATELET ESTIMATE, MANUAL NORMAL (130-450,000) (NORMAL)
--- NOTE | 2023-10-31 08:37 | ED Physician Documentation ---
ED Addendum - Addendum Addendum: 10/31/23 08:34 Received sign out from Dr. Phelan; please see his note for H&P. Patient has withdrawal seizure during ED evaluation for alcohol withdrawal. Dr. Phelan discussed this case with telehealth hospitalist for [facility] who will accept patient contingent on unremarkable CTH. CTH is unremarkable and I contacted telehealth hospitalist and he accepts admission to [facility]
[2023-10-31] MEDS: FOLIC ACID 1 MG TABLET PO SCH (08:53)
[2023-10-31] MEDS: PRENATAL VITAMIN TABLET PO SCH (08:53)
[2023-10-31] MEDS: FAMOTIDINE 20 MG TABLET PO SCH (08:53)
[2023-10-31] MEDS: THIAMINE 100 MG TABLET PO SCH (08:53)
[2023-10-31] MEDS: CONTRACEPTIVE PO SCH (08:53)
[2023-10-31] MEDS ORDERED: CYANOCOBALAMIN 500 MCG TABLET PO SCH (09:00)
[2023-10-31] MEDS ORDERED: amLODIPine 5 MG TABLET PO SCH ×2 (09:00)
--- NOTE | 2023-10-31 10:39 | Discharge Plan ---
Discharge Plan Problem Reviewed?: Yes Disposition: Home, Self Care Condition: Stable Prescriptions: Sucralfate [Carafate] 1 gm PO 0700,1100,1600,2200 14 Days #560 ml Folic Acid 1 mg PO DAILY #30 tab amLODIPine [Norvasc] 10 mg PO DAILY #30 tab Famotidine [Pepcid] 20 mg PO DAILY PRN #30 tab PRN Reason: Indigestion Thiamine [Vitamin B-1] 100 mg PO DAILY #30 tab Cyanocobalamin (Vitamin B-12) [Vitamin B-12] 2,000 mcg PO DAILY #30 lozenge Diet: Regular Activity Restrictions: No Restrictions Shower Restrictions: No Driving Restrictions: No Instruction Topics: Withdrawal Alcohol What Expect Plan of Treatment: Please follow-up with PCP. Discontinue use of OCP. Additional Instructions or Follow Up instructions: Discontinue alcohol use. No Smoking: If you smoke, Please STOP! Call for help.
--- NOTE | 2023-10-31 10:41 | DISCHARGE SUMMARY ---
Discharge Summary Discharge Date: 10/31/23 Discharging Provider: Sebas Primary Care Provider: To be established Code Status: Attempt Resuscitation Condition at Discharge: Good Discharge Disposition: 01 Home, Self Care - DIAGNOSES Discharge Diagnoses with Status of Each Condition: EtOH withdrawal seizure - Resolved. - HPI History of Present Illness: 28 y/o F presented to the ED with abd. Mosty epigastric for few weeks. No radi ation or sob but occasional nausea. She received some Zofran in a clinic few days ago. She drinks daily and has had alcohol withdrawal seizure in the past. Shortly after arrival she had a seizure for 1-2 min followed by 5-10 min post- ictal and since then back to baseline. She denies head trauma or fever/chills. Pt says she is feeling much better with decreased abdominal pain now. She denies any cp. she says this is similar to the seizure episode she had years ago. she says she drinks 2-3 drinks a day from a kurtis can. Her significant other earlier said it's more than that. - HOSPITAL COURSE Hospital Course: Patient is a 28-year-old female who presented to the ED after having a 1 to 2- minute withdrawal seizure at home followed by a 5 to 10-minute postictal state. A CT head was performed which did not reveal any intracranial pathology. The patient was admitted to the ICU and started on CIWA protocol. She did not have any further seizure activity and her Ativan was weaned off. Patient did endorse some gait unsteadiness. She was eval by physical therapy and Occupational Therapy and her unsteadiness did improve. She also endorsed some bilateral pleuritic chest pain. A chest x-ray was performed which was negative we also performed a D-dimer which was negative. Patient did have an elevated blood pressure and was started on amlodipine 10 mg daily. I also instructed her to discontinue her OCP as it could exacerbate her hypertension. We expressed the importance of alcohol cessation and provided her with resources. Prior to discharge we also provided resources to establish care with a PCP. Of note patient did have a B12 deficiency. She was prescribed B12 on discharge. - ALLERGIES Allergies/Adverse Reactions: Allergies Allergy/AdvReac Type Severity Reaction Status Date / Time No Known Drug Allergies Allergy Verified 10/28/23 18:53 - MEDICATIONS Home Medications: Ambulatory Orders Medication Instructions Recorded Confirmed Cyanocobalamin (Vitamin B-12) 2,000 mcg PO DAILY #30 lozenge 10/31/23 [Vitamin B-12] Famotidine [Pepcid] 20 mg PO DAILY PRN #30 tab 10/31/23 Folic Acid 1 mg PO DAILY #30 tab 10/31/23 Ibuprofen 600 mg PO Q6H PRN #30 10/31/23 10/29/23 Sucralfate [Carafate] 1 gm PO 0700,1100,1600,2200 14 10/31/23 Days #560 ml Thiamine [Vitamin B-1] 100 mg PO DAILY #30 tab 10/31/23 amLODIPine [Norvasc] 10 mg PO DAILY #30 tab 10/31/23 - PHYSICAL EXAM AT DISCHARGE General Appearance: positive: No acute distress, Alert, Mild distress Respiratory: positive: Chest non-tender, No respiratory distress, Breath sounds nml Cardiovascular: positive: Regular rate & rhythm, No murmur, No gallop Abdomen: positive: Non-tender, No organomegaly, Nml bowel sounds, No distention Neurologic/Psychiatric: positive: Oriented x3, CN's nml (2-12), Motor nml - LABS Result Diagrams: 10/31/23 05:45 10/31/23 05:45 - FOLLOW UP Follow Up: Follow-up with PCP. - TIME SPENT Time Spent in Discharge (Minutes): 35
[2023-10-31 16:37] VITALS: BP 124/78; O2SAT 100
== END 2023-10-31 12:10 | disposition home or self-care (01) | DRG 101 ==
LOC: ED 18:44 → ICU 23:36 → MS2 10-30 19:26
PROVIDERS: ADMIT Hospitalist; ATTEND Family Medicine
DX: G40.89 Other seizures (principal); F10.930 Alcohol use, unspecified with withdrawal, uncomplicated; R26.81 Unsteadiness on feet; R07.81 Pleurodynia; R03.0 Elevated blood-pressure reading, without diagnosis of hypertension; E53.8 Deficiency of other specified B group vitamins; R10.13 Epigastric pain; I10 Essential (primary) hypertension; R53.1 Weakness; K29.20 Alcoholic gastritis without bleeding; R07.9 Chest pain, unspecified; Z32.02 Encounter for pregnancy test, result negative
CPT/HCPCS: 36415; 70450; 71045; 80048; 80053; 80076; 80306; 80320; 81003; 81025; 82330; 82607; 82746; 83690; 83735; 84100; 84132; 84439; 84443; 84484; 85025; 85379; 85610; 85730; 87150; 93005; 96365; 96372; 96375; 96376; 97162; 97166; 99284; 99285; A9270; J2060; J2560; J3411; 81001; 87086